=== PATIENT | female | born 1980 | race Caucasian/White ===

== ENCOUNTER → 2017-02-24 | Outpatient (CLI) | payer BC ==
[~2017-02-24] MED LIST: METOPROLOL SUCC25 MG PO; VITAMIN D31000 UNIT PO
--- NOTE | ~2017-02-24 | CR97 ---
[facility] A Service of [facility] & [facility] RADIOLOGY TEXT RESULTS PATIENT: SHABBIR CALLE LOCATION: [facility] : [birth year] UNIT #: [id number] AGE: [address]: Zack Fields III, MD SEX: F ORDER DR: [id number] [facility]. [place], [place] [address] [id number] O MR#: [id number] Acc #: [id number] NAME: SHABBIR CALLE : 1980 SEX: F STUDY DATE/TIME: 02/24/2017 12:15 UNIT: [facility] ROOM: STUDY DESCRIPTION: CR Esophagram Attending Physician: Zack Fields III, M.D. Referring Physician: Zack Fields III, M.D. Ordering Physician: Zack Fields III, M.D. Primary Care Physician: Don Santos M.D. MEDICAL IMAGING REPORT This report is preliminary unless electronic signature is present EXAM Esophagram, 02/24/2017 INDICATIONS 36-year-old female presenting for lap band surgery. Possible paraesophageal hernia repair. Preop evaluation with shortness of air and morbid obesity. Symptoms began today. Hypertension. TECHNIQUE Spot fluoroscopic views of the esophagus were obtained in various projections after the patient ingested gas crystals and thick and thin liquid barium on 02/24/2017. No comparisons. FINDINGS Notes indicate 55 images from the procedure were saved to the MyagiS System. 0.8 minutes of fluoroscopy time were used in the case. The esophagus demonstrates an unremarkable primary stripping wave. No significant secondary or tertiary contractions. No focal esophageal mass, mucosal abnormality or stricture identified. No hiatal hernia. IMPRESSION 1. Essentially negative esophagram. 2. Notes indicate 55 images from the procedure were saved to the MyagiS System. 0.8 minutes of fluoroscopy time used in the case. Dictated by... Avelino Stewart M.D. THIS IS AN ELECTRONICALLY VERIFIED REPORT Avelino Stewart M.D. at 02/27/2017 3:26 PM JLY/psc STS. [facility] A Service of [facility] & [facility] RADIOLOGY TEXT RESULTS PATIENT: SHABBIR CALLE LOCATION: [facility] : [birth year] UNIT #: [id number] AGE: [address]: Zack Fields III, MD SEX: F ORDER DR: TD: 02/24/2017 20:52 JOB #: [id number] MEDICAL IMAGING REPORT Page 1 of 1 COPY
--- NOTE | ~2017-02-24 | CR63 ---
[facility] A Service of [facility] & [facility] RADIOLOGY TEXT RESULTS PATIENT: SHABBIR CALLE LOCATION: [facility] : 82 UNIT #: [id number] AGE: [address]: Zack Fields III, MD SEX: F ORDER DR: [id number] [facility] [address]. [place], [place] [address] [id number] O MR#: [id number] Acc #: [id number] NAME: SHABBIR CALLE : 1980 SEX: F STUDY DATE/TIME: 02/24/2017 8:12 UNIT: [facility] ROOM: STUDY DESCRIPTION: CR Chest 2 View Attending Physician: Zack Fields III, M.D. Referring Physician: Zack Fields III, M.D. Ordering Physician: Zack Fields III, M.D. Primary Care Physician: Don Santos M.D. MEDICAL IMAGING REPORT This report is preliminary unless electronic signature is present EXAM Chest, 02/24/2017, [facility]. HISTORY 36-year-old female patient preop clearance for laparoscopic adjustable gastric band placement and possible paraesophageal hernia repair. Morbid obesity. COMPARISON Portable chest, 06/07/2015. FINDINGS Two-view chest demonstrates cardiomegaly. Hilar structures are preserved. Bilateral lungs are expanded and clear. Costophrenic angles are preserved. Large body habitus noted. IMPRESSION Mild cardiomegaly present. Morbid obesity. No acute chest finding. Dictated by... Stephen Velasquez M.D. THIS IS AN ELECTRONICALLY VERIFIED REPORT Stephen Velasquez M.D. at 02/24/2017 1:56 PM KENNEDY/izzy TD: 02/24/2017 11:34 JOB #: [id number] MEDICAL IMAGING REPORT Page 1 of 1 COPY
--- NOTE | ~2017-02-24 | EKG ---
PATIENT: SHABBIR CALLE UNIT #: [id number] Ventricular Rate: 96 BPM Atrial Rate: 96 BPM P-R Interval: 150 ms QRS Duration: 72 ms Q-T Interval: 334 ms QTC Calculation(Bezet): 421 ms P Rice: 45 degrees Calculated R Rice: 32 degrees Calculated T Rice: 35 degrees Diagnosis Line: Normal sinus rhythm with sinus arrhythmia Diagnosis Line: Possible Left atrial enlargement Diagnosis Line: Borderline ECG Diagnosis Line: No previous ECGs available Diagnosis Line: Confirmed by ARTEMIO MCGUIRE MD ([id number]) on 02/25/2017 Diagnosis Line: 8:34:12 AM INTERPRETING MD: MAYNOR BECK
[2017-02-24 09:50] LABS: HEMATOCRIT 39.9 % (35.0-45.0); HEMOGLOBIN 13.3 gm/dL (12.0-16.0); MEAN CELL VOLUME 83.8 FL (83-96); MEAN CORPUSCULAR HEMOGLOBIN 27.9 PG (28-34); MEAN CORPUSCULAR HGB CONC 33.3 g/dL (30-36); MEAN PLATELET VOLUME 6.8 FL (6.5-11.5); RED BLOOD COUNT 4.76 X10e (3.90-5.30); RED CELL DISTRIBUTION WIDTH 13.7 % (11.0-15.5); WHITE BLOOD COUNT 9.6 X10e3 (4.0-10.5)
[2017-02-24 10:54] LABS: ALBUMIN SERUM 4.2 g/dL (3.5-5.0); BILIRUBIN,TOTAL 0.4 mg/dL (0.2-2.0); BUN/CREATININE RATIO 16.25; CALCIUM SERUM 9.3 mg/dL (8.4-10.2); CREATININE SERUM 0.8 mg/dL (0.6-1.4); GLOM FILT RATE Estimated 95.6 mL/min (>60); POTASSIUM 5.2 mmol/L (3.5-5.1); PROTEIN TOTAL SERUM 7.8 g/dL (6.0-8.3)
== END | disposition home or self-care (01) ==
LOC: CRAD 07:57 → CAMB 09:00
PROVIDERS: Surgery
DX: Z01.818 Encounter for other preprocedural examination (principal); E66.01 Morbid (severe) obesity due to excess calories; I51.7 Cardiomegaly
CPT/HCPCS: 36415; 71020; 74220; 80053; 80061; 84443; 85027; 93005

== ENCOUNTER → 2017-03-08 | Day surgery (SDC) | payer BC ==
--- NOTE | ~2017-03-08 | CR7 ---
[facility] A Service of [facility] & [facility] RADIOLOGY TEXT RESULTS PATIENT: SHABBIR CALLE LOCATION: [facility] : 82 UNIT #: [id number] AGE: [address]: Zack Fields III, MD SEX: F ORDER DR: [id number] [facility] [address] [facility]. [place], [place] [address] [id number] O MR#: [id number] Acc #: [id number] NAME: SHABBIR CALLE : 1980 SEX: F STUDY DATE/TIME: 03/08/2017 9:42 UNIT: [facility] ROOM: STUDY DESCRIPTION: CR Abdomen Single AP View Attending Physician: Zack Fields III, M.D. Ordering Physician: Zack Fields III, M.D. Primary Care Physician: Don Santos M.D. MEDICAL IMAGING REPORT This report is preliminary unless electronic signature is present EXAM Abdomen x-ray HISTORY Postop Lap-Band device. Abdomen pain. Lap-Band was placed today. Evaluate position. FINDINGS This supine view of the abdomen shows a Lap-Band device in place. The ring has about a 52 degree angle off the vertical through the spine. The bowel gas pattern is normal. Dictated by... Sloan Staley M.D. THIS IS AN ELECTRONICALLY VERIFIED REPORT Sloan Staley M.D. at 03/08/2017 1:01 PM Mer TD: 03/08/2017 12:30 JOB #: [id number] MEDICAL IMAGING REPORT Page 1 of 1 COPY
--- NOTE | ~2017-03-08 | OR ---
Unit #: [id number] #: [id number] Patient: SHABBIR CALLE [id number] [address] [address] [id number] O MR#: [id number] NAME: SHABBIR CALLE ROOM: Date of Procedure: 03/08/2017 Admission Date: 03/08/2017 Surgeon: Zack Fields III, M.D. : 1980 Attending Physician: Zack Fields III, M.D. Primary Care Physician: Don Santos M.D. OPERATIVE REPORT PREOPERATIVE DIAGNOSIS Chronic morbid obesity. POSTOPERATIVE DIAGNOSIS Chronic morbid obesity. PROCEDURE PERFORMED Laparoscopic adjustable gastric banding (AP standard with regular port). SECONDARY DIAGNOSIS Anterior paraesophageal hernia. SECONDARY PROCEDURE Laparoscopic paraesophageal hernia repair. [employer] Dr. Silas Daily. SPECIMENS None. COMPLICATIONS None apparent. ESTIMATED BLOOD LOSS Minimal. ANESTHESIA General endotracheal tube anesthesia. INDICATIONS FOR PROCEDURE This is a 36-year-old lady, who has chronic morbid obesity with a BMI of 54 and associated comorbidities of hypertension. She has been through the bariatric program at [facility] and understands the risks and benefits of the procedure. DESCRIPTION OF PROCEDURE After consent was obtained, including the risks and benefits of slippage, erosion, port dysfunction, and possible failure of weight loss due to noncompliance, the patient was taken to the operating room and placed in the supine position. General anesthetic was administered and the abdomen was prepped and draped in standard surgical fashion. Unit #: [id number] #: [id number] Patient: SHABBIR CALLE I began by making a 2 cm incision just above and to the left of the umbilicus. I used a Visiport to enter the peritoneal cavity without any difficulty. C02 pneumoperitoneum was then established. Next, I placed a 5 mm port in the right upper quadrant, a 5 mm Theo liver retractor in the subxiphoid region to provide exposure of the gastroesophageal junction. Next, a 10 mm port was placed in the left upper quadrant and a 5 mm port was placed in the left lateral subcostal region. I began by performing an examination of the GE junction to evaluate for a hiatal hernia. We then scored the peritoneal attachments overlying the angle of His. I then opened up the clear space in the gastrohepatic ligament, and then using 2 blunt graspers, I identified the small fat pad crossing over the right crura. I swept the fat anterior to the crura off the crura and using the pars flaccida, I created a retrogastric tunnel where the blunt grasper exited at the angle of His. Once I had made this tunnel safely, I then inserted an Allergan AP band into the abdominal cavity. This adjustable gastric band was then place around the upper part of the stomach and fastened and buckled anteriorly. We then tacked the lateral fundus over the band to the proximal pouch with 2 interrupted 0 Ethibond sutures. I then used a third stitch to imbricate the excess anterior stomach by going from the lesser curvature up towards where the last stitch was placed. We then had excellent hemostasis. I removed the Theo liver retractor. We then removed the port tubing through the initial port incision. The rest of the ports were removed, and the pneumoperitoneum was released. I then left a small tail on the tubing. We then attached the port to the excess band tubing. We placed a piece of Prolene mesh along the back side of the port and used a Prolene stitch to anchor this mesh in place. We then trimmed the excess mesh so that just a small footprint of mesh was in place behind the port. I then inserted the tubing back into the abdominal cavity, and we placed the port into a small pocket that was made just inferior to where our initial port incision was made. The mesh was in direct contact with the fascia, and this will scar in place to hold the port in place. We then injected all the port sites with 0.25% plain Marcaine, and I reapproximated the skin edges with interrupted 4-0 Vicryl subcuticular sutures. Steri-strips were then applied. The patient tolerated the procedure without any problems and returned to the recovery room in stable condition. ADDENDUM After exposure of the GE junction, the patient was noted to have a small to medium size anterior paraesophageal hernia. I scored the phrenoesophageal ligament, reduced the hernia defect including the hernia sac and after identifying both the right and left crura, I reapproximated the defect with an interrupted 0 Ethibond [id number]-[id number] suture. I then proceeded with the case as listed above. Dictated byYasmeen.. Zack Fields III, M.D. VCL/aiyana TD: 03/09/2017 10:59 JOB #: [id number] Unit #: [id number] #: [id number] Patient: SHABBIR CALLE OPERATIVE REPORT Page 1 of 1 X Zack Fields III, MD PROCEDURE OPERATIVE NOTE
== END | disposition home or self-care (01) ==
LOC: CSUR 05:58
DX: E66.01 Morbid (severe) obesity due to excess calories (principal); Z68.43 Body mass index [BMI] 50.0-59.9, adult; K44.9 Diaphragmatic hernia without obstruction or gangrene; K57.90 Diverticulosis of intestine, part unspecified, without perforation or abscess without bleeding; I10 Essential (primary) hypertension; K21.9 Gastro-esophageal reflux disease without esophagitis; E55.9 Vitamin D deficiency, unspecified; R06.83 Snoring; M62.838 Other muscle spasm; Z79.899 Other long term (current) drug therapy; Z83.2 Family history of diseases of the blood and blood-forming organs and certain disorders involving the immune mechanism; Z80.3 Family history of malignant neoplasm of breast; Z84.89 Family history of other specified conditions; Z81.1 Family history of alcohol abuse and dependence; Z82.5 Family history of asthma and other chronic lower respiratory diseases
CPT/HCPCS: 74000; 84703; C1781; J0330; J0690; J1100; J1650; J1885; J2250; J2405; J2710; J3010; L8699